=== PATIENT | female | born 1955 | race Caucasian/White ===

== ENCOUNTER 2025-02-11 12:05 | Outpatient (CLI) | payer MEDICARE, OTHER ==
[~2025-02-11 12:05] MED LIST: CLIN300C54 PO; DABI150C PO; DILT180C10 PO; DILT360C25 PO; DISO150C4 PO; FURO40TA4 PO; MULT-90; OMEG-5 PO; POTA-197 PO; RESTASIS
--- NOTE | 2025-02-11 14:52 | RADIOLOGY REPORT ---
MRI LUMBAR SPINE CLINICAL HISTORY: LOW BACK PAIN TECHNIQUE: Multi planar, multi sequence MR images of the lumbar spine without intravenous contrast. Comparison: None FINDINGS: The conus terminates at an appropriate level and demonstrates normal caliber and signal. The vertebra l bodies demonstrate normal height and marrow signal. Is moderately exaggerated lumbar lordosis. Ther e is disc desiccation throughout with multilevel disc space narrowing, worst at L4-L5. There is multi level facet arthropathy. The paraspinal soft tissues appear within normal limits. At L1-L2 there is minimal disc bulge without canal or significant foraminal stenosis. At L2-L3 there is bilateral facet arthropathy and minimal disc bulge. There is no canal or significa nt foraminal stenosis. L3-L4 there is moderate bilateral facet arthropathy and disc bulge eccentric to the right. There is n o spinal canal stenosis. There is mild right neural foraminal stenosis. At L4-L5 there is advanced bilateral facet arthropathy, right greater than left. There is grade 1 ant erolisthesis of L4 on L5. There is posterior disc bulge with mild central canal stenosis. There is mo derate right neural foraminal stenosis. At L5-S1 there is moderate bilateral facet arthropathy, [id number]-left. There is posterior d isc osteophyte complex without canal stenosis. There is [id number] bilateral neural foraminal s tenosis. IMPRESSION: 1. Moderately exaggerated lumbar lordosis with multilevel degenerative changes as described by levels above, worst at L4-L5. 2. There is advanced facet arthropathy at L4-L5 with grade 1 anterolisthesis of L4 on L5. There is mi ld central canal and moderate right neural foraminal stenosis at this level. HS:Y
== END 2025-02-11 23:59 | disposition home or self-care (01) ==
LOC: MRI02 12:05
PROVIDERS: ATTEND Family Medicine Sports Medicine
DX: M47.817 Spondylosis without myelopathy or radiculopathy, lumbosacral region (principal); M54.50 Low back pain, unspecified; M77.9 Enthesopathy, unspecified; M53.3 Sacrococcygeal disorders, not elsewhere classified; M16.11 Unilateral primary osteoarthritis, right hip
CPT/HCPCS: 72148